=== PATIENT | female | born 1990 | race Caucasian/White ===

== ENCOUNTER 2020-01-04 14:12 | Emergency (ER) | payer OTHER ==
[~2020-01-04] VITALS: Ht 167.6 cm; Wt 108.9 kg
== END 2020-01-04 14:55 | disposition home or self-care (01) ==
LOC: ER 14:12
DX: S90.811A Abrasion, right foot, initial encounter (principal); W26.8XXA Contact with other sharp object(s), not elsewhere classified, initial encounter; Y93.89 Activity, other specified; Y92.89 Other specified places as the place of occurrence of the external cause; Y99.8 Other external cause status

== ENCOUNTER 2024-12-14 09:42 | Outpatient (CLI) | payer OTHER | END 2024-12-14 09:43 | disposition home or self-care (01) | LOC: PRENATAL 09:42 | PROVIDERS: ATTEND Obstetrics & Gynecology Maternal & Fetal Medicine | DX: O36.80X0 Pregnancy with inconclusive fetal viability, not applicable or unspecified (principal); O26.859 Spotting complicating pregnancy, unspecified trimester; Z3A.08 8 weeks gestation of pregnancy ==

== ENCOUNTER → 2025-01-13 09:21 | Outpatient (CLI) | payer OTHER | END | disposition home or self-care (01) | LOC: PRENATAL 09:21 | PROVIDERS: ATTEND Obstetrics & Gynecology Maternal & Fetal Medicine | DX: O36.80X0 Pregnancy with inconclusive fetal viability, not applicable or unspecified (principal); Z36.82 Encounter for antenatal screening for nuchal translucency; Z14.8 Genetic carrier of other disease; O34.10 Maternal care for benign tumor of corpus uteri, unspecified trimester; Z3A.12 12 weeks gestation of pregnancy ==

== ENCOUNTER → 2025-03-11 12:20 | Outpatient (CLI) | payer OTHER | END | disposition home or self-care (01) | LOC: PRENATAL 12:20 | PROVIDERS: ATTEND Obstetrics & Gynecology Maternal & Fetal Medicine | DX: O44.00 Complete placenta previa NOS or without hemorrhage, unspecified trimester (principal); Z14.8 Genetic carrier of other disease; O34.10 Maternal care for benign tumor of corpus uteri, unspecified trimester; Z3A.20 20 weeks gestation of pregnancy ==

== ENCOUNTER 2025-05-04 10:54 | Outpatient (CLI) | payer OTHER | END 2025-05-04 10:56 | disposition home or self-care (01) | LOC: PRENATAL 10:54 | PROVIDERS: ATTEND Obstetrics & Gynecology Maternal & Fetal Medicine | DX: O26.849 Uterine size-date discrepancy, unspecified trimester (principal); O36.8199 Decreased fetal movements, unspecified trimester, other fetus; Z14.8 Genetic carrier of other disease; O34.10 Maternal care for benign tumor of corpus uteri, unspecified trimester; Z3A.28 28 weeks gestation of pregnancy ==

== ENCOUNTER → 2025-06-13 15:19 | Outpatient (CLI) | payer OTHER | END | disposition home or self-care (01) | LOC: PRENATAL 15:19 | PROVIDERS: ATTEND Obstetrics & Gynecology Maternal & Fetal Medicine | DX: O26.849 Uterine size-date discrepancy, unspecified trimester (principal); O36.8199 Decreased fetal movements, unspecified trimester, other fetus; Z14.8 Genetic carrier of other disease; O34.10 Maternal care for benign tumor of corpus uteri, unspecified trimester; Z3A.34 34 weeks gestation of pregnancy ==